=== PATIENT | female | born 1980 ===

== ENCOUNTER 2017-04-06 12:03 | Emergency (ER) | payer OTHER ==
[2017-04-06 12:07] VITALS: BP 140/68; PULSE 70; RESP 20; TEMP 97.6; O2SAT 100
[2017-04-06 12:08] VITALS: BMI 36.2
--- NOTE | 2017-04-06 12:28 | ED PDOC ---
Lower Extremity Pain/Injury Time Seen by Provider: 04/06/17 12:18 Chief Complaint (Nursing): Lower Extremity Problem/Injury History Per: Patient (Pain and swelling left knee and left hand, chronic problem with exacerabtions and remission. States she might have rheumatoid arthritis but has not f/u with specialist. Denies trauma or fever.) Onset/Duration Of Symptoms: Other (Chronic) Current Symptoms Are (Timing): Intermittent Episodes Severity: Mild Past Medical History Vital Signs: Last Vital Signs Temp 97.6 F 04/06/17 12:07 Pulse 70 04/06/17 12:07 Resp 20 04/06/17 12:07 BP 140/68 04/06/17 12:07 Pulse Ox 100 04/06/17 12:07 - Medical History PMH: HTN, Hypothyroidism, Migraine, Rheumatoid Arthritis Denies: Chronic Kidney Disease - Family History Family History: States: Unknown Family Hx - Home Medications Home Medications: Ambulatory Orders Medication Instructions Recorded predniSONE [predniSONE Tab] 20 mg PO TID #15 tab 04/06/17 - Allergies Allergies/Adverse Reactions: Allergies Allergy/AdvReac Type Severity Reaction Status Date / Time morphine Allergy ITCHING Verified 03/27/16 06:06 Review of Systems Constitutional: Negative for: Fever Musculoskeletal: Positive for: Other (Knee pain, left hand pain) Skin: Negative for: Rash Physical Exam - Physical Exam Appears: Positive for: Non-toxic, No Acute Distress Skin: Positive for: Normal Color, Warm, DRY Extremity: Positive for: Other (Left knee, no joint swelling or tenderness. No deformity. No erythema or warmth. No crepitance. FROM. No calf tenderness or swelling. Left hand no joint swelling or tenderness. No warmth. FROM) - ECG O2 Sat by Pulse Oximetry: 100 Disposition - Clinical Impression Clinical Impression: Arthralgia - Patient ED Disposition Is Patient to be Admitted: No Counseled Patient/Family Regarding: Diagnosis, Need For Followup, Rx Given - Disposition Referrals: Jam Gutierrez MD [Staff Provider] - Disposition: Routine/Home Disposition Time: 12:30 Condition: FAIR Prescriptions: predniSONE [predniSONE Tab] 20 mg PO TID #15 tab Instructions: Knee Pain (ED), Arthralgia (ED) Forms: [employer] (Faroese) Print Language: FRISIAN
== END 2017-04-06 12:40 | disposition home or self-care (01) ==
LOC: H.ER 12:03
DX: M25.542 Pain in joints of left hand (principal); M25.562 Pain in left knee

== ENCOUNTER 2017-05-24 17:07 | Emergency (ER) | payer OTHER ==
[2017-05-24 17:07] VITALS: BMI 36.2
[2017-05-24 17:15] VITALS: BP 170/90; PULSE 74; RESP 18; TEMP 97.7; O2SAT 99
--- NOTE | 2017-05-24 17:38 | ED PDOC ---
Lower Extremity Pain/Injury Time Seen by Provider: 05/24/17 17:18 Chief Complaint (Nursing): Lower Extremity Problem/Injury Chief Complaint (Provider): leg pain History Per: Patient History/Exam Limitations: no limitations Additional Complaint(s): 36yo F in Ed for eval of left lower leg swelling, pain and stiffness to calf area. no recent injury no recent surgery . Pt has an IUD, no hx of dvt or PE. PT sent to ER by MD Good for an US-duplex r/o DVT - Risk Factors DVT Risk Factors: Pos: None Past Medical History Reviewed: Historical Data, Nursing Documentation, Vital Signs Vital Signs: Last Vital Signs Temp 97.7 F 05/24/17 17:11 Pulse 74 05/24/17 17:11 Resp 18 05/24/17 17:11 BP 170/90 H 05/24/17 17:11 Pulse Ox 99 05/24/17 17:11 - Medical History PMH: HTN, Hypothyroidism, Migraine, Rheumatoid Arthritis Denies: Chronic Kidney Disease - Family History Family History: States: Unknown Family Hx - Home Medications Home Medications: Ambulatory Orders Medication Instructions Recorded predniSONE [predniSONE Tab] 20 mg PO TID #15 tab 04/06/17 Ibuprofen [Motrin] 400 mg PO Q6 #30 tab 05/24/17 - Allergies Allergies/Adverse Reactions: Allergies Allergy/AdvReac Type Severity Reaction Status Date / Time morphine Allergy ITCHING Verified 03/27/16 06:06 Wells Criteria for PE - Wells Criteria for Pulmonary Embolism Clinical Signs and Symptoms of DVT: No P.E is #1 Diagnosis, or Equally Likely: No Heart Rate >100: No Immobilization at least 3 days;Surgery previous 4 weeks: No Previous, objectively diagnosed PE or DVT: No Hemoptysis: No Malignancy w/treatment within 6 months, or palliative: No Total Score: 0 Review of Systems ROS Statement: Except As Marked, All Systems Reviewed And Found Negative Constitutional: Negative for: Fever, Chills Musculoskeletal: Positive for: Leg Pain Physical Exam - Reviewed Nursing Documentation Reviewed: Yes Vital Signs Reviewed: Yes - Physical Exam Appears: Positive for: Well, Non-toxic, No Acute Distress Skin: Positive for: Normal Color, Warm, DRY Cardiovascular/Chest: Positive for: Regular Rate, Rhythm Respiratory: Positive for: CNT, Normal Breath Sounds Extremity: Positive for: Other (left LE: mild calf pain nueruovasc intact. no swelling FROM. ) Neurologic/Psych: Positive for: Alert, Oriented - ECG O2 Sat by Pulse Oximetry: 99 Medical Decision Making Medical Decision Making: pt with negative IMPRESSION: No sonographic or Doppler evidence for DVT in left lower extremity. Pt stable for d.c with motrin for pain. f.u with MD good Disposition - Clinical Impression Clinical Impression: Leg cramp - Patient ED Disposition Is Patient to be Admitted: No Counseled Patient/Family Regarding: Studies Performed, Diagnosis, Need For Followup, Rx Given - Disposition Disposition: Routine/Home Disposition Time: 18:32 Condition: STABLE Prescriptions: Ibuprofen [Motrin] 400 mg PO Q6 #30 tab Instructions: Muscle Cramp (ED) Forms: [employer] (Slovak)
--- NOTE | 2017-05-24 18:32 | US ---
HISTORY: Calf pain. PRIORS: No relevant prior studies available for comparison FINDINGS: 2-D, color and duplex Doppler analysis of the lower extremity venous circulation using routine protocol from the femoral veins through the popliteal veins. Venous compressibility: Normal. Flow and augmentation patterns: Normal. Visualized veins upper third of calf: Normal. Skelton cyst: None. IMPRESSION: No sonographic or Doppler evidence for DVT in left lower extremity.
== END 2017-05-24 19:02 | disposition home or self-care (01) ==
LOC: H.ER 17:07
DX: R25.2 Cramp and spasm (principal)